=== PATIENT | female | born 1945 | race Caucasian/White ===

== ENCOUNTER 2017-01-17 15:26 | Emergency (ER) | payer MEDICARE, OTHER ==
[~2017-01-17] VITALS: Ht 170.2 cm; Wt 64.5 kg
[~2017-01-17 15:26] MED LIST: CLARITIN 1010 MG/TAB PO; FLEXERIL 1010 MG/TAB PO; LEVOXYL0.075 MG PO; MACROBID 1100 MG/CAP PO; NEXIUM 20MG20 MG PO; PREVACID 30MG30 M1 PO; PYRIDIUM200 M1 PO; TYLENOL 325MG325 MG PO
[2017-01-17 15:31] VITALS: PULSE 73; TEMP 97.8
[2017-01-17 15:47] LABS: BASO # 0.2 (0.0-0.2); BASO % 2.1 % (0.0-2.0); EOS # 0.2 (0.0-0.7); EOS % 2.2 % (0-4.0); GRAN # 4.2 (1.4-6.5); HEMATOCRIT 40.4 % (37.0-47.0); HEMOGLOBIN 13.1 g/dl (12.5-16.0); LYMPH # 2.7 (1.2-3.4); LYMPH % 33.3 % (20.0-51.0); MEAN CELL VOLUME 90 fl (80.0-100.0); MEAN CORPUSCULAR HEMOGLOBIN 29 pg (27.0-31.0); MEAN CORPUSCULAR HGB CONC 32 g/dl (33.0-37.0); MONO # 0.8 (0.1-0.6); MONO % 10.2 % (1.7-9.3); PLATELET COUNT 236 K/mm3 (130-400); RED BLOOD COUNT 4.47 M/mm3 (4.10-5.30); REDCELL DISTRIBUTION WIDTH-CV 13.9 % (11.5-14.5)
[2017-01-17 15:55] LABS: INR 1.1 (0.8-3.0); PROTHROMBIN TIME 12.6 SECONDS (9.7-12.8)
[2017-01-17 16:06] LABS: ALBUMIN 4.4 gm/dL (3.5-5.0); BILIRUBIN,TOTAL 0.8 mg/dL (0.0-1.0); CALCIUM 9.3 mg/dL (8.4-10.2); CREATININE, serum 0.72 mg/dL (0.52-1.25); POTASSIUM 3.7 mmol/L (3.4-5.0); TOTAL PROTEIN 7.7 gm/dL (6.4-8.2)
[2017-01-17] MEDS ORDERED: SYNTHROID0.088 MG/T PO (16:34)
[2017-01-17 18:12] VITALS: BP 133/87
== END 2017-01-17 18:13 | disposition home or self-care (01) ==
LOC: COL.ER 15:26
PROVIDERS: Emergency Medicine
DX: G43.809 Other migraine, not intractable, without status migrainosus (principal); K21.9 Gastro-esophageal reflux disease without esophagitis; Z87.891 Personal history of nicotine dependence; Z79.82 Long term (current) use of aspirin; Z86.73 Personal history of transient ischemic attack (TIA), and cerebral infarction without residual deficits
CPT/HCPCS: J1885; J2550; J7040

== ENCOUNTER → 2018-03-27 | Outpatient (CLI) | payer MEDICARE, OTHER ==
[~2018-03-27] VITALS: Ht 170.2 cm; Wt 57.4 kg
[~2018-03-27] MED LIST changes: +ASPIRIN 81M81 MG/TA2 PO; +CALCIUM 600/VIT1 CAP PO; +INDOCIN 25MG CA25 MG PO; +MULTI VITAMINS1 TAB PO; +PROTONIX 40MG T40 MG PO; +ROBAXIN 50500 MG/TAB PO; +SYNTHROID0.088 MG/T PO
[2018-03-27 13:43] VITALS: BP 122/83; PULSE 73
[2018-03-27 14:40] VITALS: BP 128/90; PULSE 71
== END ==
LOC: COL.RAD 13:15
DX: M51.26 Other intervertebral disc displacement, lumbar region (principal)
CPT/HCPCS: J3301

== ENCOUNTER 2018-05-28 09:43 | Emergency (ER) | payer MEDICARE, OTHER ==
[~2018-05-28] VITALS: Ht 167.6 cm; Wt 58.2 kg
[2018-05-28 09:50] VITALS: TEMP 97.1
[2018-05-28 10:06] LABS: BASO # 0.2 (0.0-0.2); BASO % 1.9 % (0.0-2.0); EOS # 0.2 (0.0-0.7); EOS % 1.9 % (0-4.0); GRAN # 4.8 (1.4-6.5); GRAN % 62.4 % (42.2-75.2); HEMOGLOBIN 13.2 g/dl (12.5-16.0); LYMPH # 1.7 (1.2-3.4); LYMPH % 22.1 % (20.0-51.0); MEAN CELL VOLUME 92 fl (80.0-100.0); MEAN CORPUSCULAR HEMOGLOBIN 31 pg (27.0-31.0); MEAN CORPUSCULAR HGB CONC 33 g/dl (33.0-37.0); MEAN PLATELET VOLUME 11.1 fl (7.4-10.4); MONO # 0.9 (0.1-0.6); MONO % 11.2 % (1.7-9.3); PLATELET COUNT 244 K/mm3 (130-400); RED BLOOD COUNT 4.33 M/mm3 (4.10-5.30); REDCELL DISTRIBUTION WIDTH-CV 14.5 % (11.5-14.5)
[2018-05-28 10:21] LABS: INR 1.1 (0.8-3.0); PROTHROMBIN TIME 12.7 SECONDS (9.7-12.8)
[2018-05-28 10:24] LABS: ALANINE AMINOTRANSFERASE 21 U/L (9-52); ALBUMIN 3.9 gm/dL (3.5-5.0); ALKALINE PHOSPHATASE 69 U/L (50-136); ANION GAP 6 mmol/L (7-16); AST,SGOT 51 U/L (15-37); BILIRUBIN,TOTAL 0.9 mg/dL (0.0-1.0); BLOOD UREA NITROGEN 12 mg/dL (7-17); CALCIUM 9.3 mg/dL (8.4-10.2); CARBON DIOXIDE 30 mmol/L (22-30); CHLORIDE 100 mmol/L (98-107); CREATININE, serum 0.64 mg/dL (0.52-1.25); GLUCOSE 87 mg/dL (74-106); POTASSIUM 3.8 mmol/L (3.4-5.0); SODIUM 136 mmol/L (137-145)
[2018-05-28 10:47] LABS: TROPONIN-I < 0.012 ng/mL (0.000-0.034)
[2018-05-28 11:48] VITALS: BP 123/87; PULSE 66
== END 2018-05-28 11:49 | disposition home or self-care (01) ==
LOC: COL.ER 09:43
PROVIDERS: Emergency Medicine
DX: R51 Headache (principal); K21.9 Gastro-esophageal reflux disease without esophagitis; E03.9 Hypothyroidism, unspecified; Z79.82 Long term (current) use of aspirin
CPT/HCPCS: J1200; J2765; J7030

== ENCOUNTER → 2018-08-09 | Outpatient (CLI) | payer MEDICARE, OTHER ==
[~2018-08-09] VITALS: Ht 167.6 cm; Wt 60.0 kg
[~2018-08-09] MED LIST changes: +ALEVE 220MG220 MG PO; +LEVOXYL0.088 MG PO; +MOTRIN 200200 MG/TAB PO; +TYLENOL 500MG500 MG PO
[2018-08-09 12:40] VITALS: BP 118/83; PULSE 72
[2018-08-09 13:21] VITALS: BP 130/86; PULSE 69
== END ==
LOC: COL.RAD 11:45
DX: M51.26 Other intervertebral disc displacement, lumbar region (principal)
CPT/HCPCS: J3301

== ENCOUNTER → 2019-01-30 | Outpatient (CLI) | payer MEDICARE, OTHER ==
[~2019-01-30] VITALS: Ht 167.6 cm; Wt 57.6 kg
[~2019-01-30] MED LIST changes: +SYNTHROID0.1 MG/TAB PO
[2019-01-30 13:15] VITALS: BP 115/73; PULSE 69
[2019-01-30 14:44] VITALS: BP 138/87; PULSE 64
--- NOTE | 2019-01-30 15:22 | NUR ---
pt was taken down to pov and friend drove her home.
== END ==
LOC: COL.RAD 13:00
DX: M48.061 Spinal stenosis, lumbar region without neurogenic claudication (principal)
CPT/HCPCS: J3301

== ENCOUNTER → 2020-12-07 | Outpatient (CLI) | payer MEDICARE, OTHER | LOC: MC.RAD 13:30 | DX: Z12.31 Encounter for screening mammogram for malignant neoplasm of breast (principal) ==

== ENCOUNTER 2021-09-20 07:45 | Observation (INO) | payer MEDICARE, OTHER ==
[~2021-09-20] VITALS: Ht 170.2 cm; Wt 60.2 kg
[2021-09-20 08:10] LABS: BASO # 0.1 K/mm3 (0.0-0.2); BASO % 1.8 % (0.0-2.0); EOS # 0.2 K/mm3 (0.0-0.7); EOS % 3.2 % (0.0-4.0); GRAN # 3.7 K/mm3 (1.4-6.5); HEMATOCRIT 38.4 % (37.0-47.0); HEMOGLOBIN 12.6 g/dl (12.5-16.0); LYMPH % 28.8 % (20.0-51.0); MEAN CELL VOLUME 89 fl (80.0-100.0); MEAN CORPUSCULAR HEMOGLOBIN 29 pg (27-31); MEAN CORPUSCULAR HGB CONC 33 g/dl (33.0-37.0); MEAN PLATELET VOLUME 11.1 fl (7.4-10.4); MONO # 0.8 K/mm3 (0.1-0.6); MONO % 11.9 % (1.7-9.3); PLATELET COUNT 246 K/mm3 (130-400); RED BLOOD COUNT 4.34 M/mm3 (4.10-5.30); REDCELL DISTRIBUTION WIDTH-CV 13.7 % (11.5-14.5)
[2021-09-20 08:22] LABS: INR 1.2 (0.8-3.0)
[2021-09-20 08:30] LABS: ALBUMIN 3.8 gm/dL (3.4-4.8); BILIRUBIN,TOTAL 0.5 mg/dL (0.2-1.2); CALCIUM 9.5 mg/dL (8.4-10.2); CREATININE, serum 0.76 mg/dL (0.57-1.11); POTASSIUM 4.1 mmol/L (3.5-4.5); TOTAL PROTEIN 7.3 gm/dL (6.2-8.1)
[2021-09-20] MEDS ORDERED: MUCUS RELIEF200 MG PO (11:30)
[2021-09-20 16:27] VITALS: BP 98/65; PULSE 72; TEMP 98.3
--- NOTE | 2021-09-20 19:18 | NUR ---
Pt arrived to the floor without any deficits. NIH on arrival was 0. Bedside dysphagia was completed without any issues. Diet ordered as general diet. The patient denies any pain, but does complain of generalized weakness. Report given to SHAYNE Ness.
[2021-09-20 20:55] VITALS: BP 93/62; PULSE 67; TEMP 98.4
[2021-09-21 00:16] VITALS: BP 111/64; PULSE 65; TEMP 97.9
[2021-09-21 04:36] VITALS: BP 105/71; PULSE 63; TEMP 98.2
--- NOTE | 2021-09-21 05:06 | NUR ---
NO NEW ISSUES NOTED OR REPORTED BY PATIENT THROUGHOUT THE NIGHT.
[2021-09-21 06:17] LABS: HEMATOCRIT 38.5 % (37.0-47.0); HEMOGLOBIN 12.3 g/dl (12.5-16.0); MEAN CELL VOLUME 90 fl (80.0-100.0); MEAN CORPUSCULAR HEMOGLOBIN 29 pg (27-31); MEAN CORPUSCULAR HGB CONC 32 g/dl (33.0-37.0); MEAN PLATELET VOLUME 11.1 fl (7.4-10.4); PLATELET COUNT 241 K/mm3 (130-400)
[2021-09-21 06:42] LABS: CALCIUM 8.5 mg/dL (8.4-10.2); CHOLESTEROL RISK RATIO 3.6; CREATININE, serum 0.78 mg/dL (0.57-1.11); POTASSIUM 4.2 mmol/L (3.5-4.5)
--- NOTE | 2021-09-21 07:23 | NUR ---
PT LAYING IN BED, DENIES ANY PAIN, STATES SHE FEELS GOOD, BUT IS STILL WEAK. NO OTHER CONCERNS RIGHT AT THIS TIME.
[2021-09-21 08:41] VITALS: BP 95/56; PULSE 50; TEMP 98.1
[2021-09-21 12:22] VITALS: BP 97/62; PULSE 65; TEMP 98.3
[2021-09-21] MEDS ORDERED: ASPIRIN E.C. 8181 MG PO (14:39)
[2021-09-21] MEDS ORDERED: LIPITOR20 MG PO (14:39)
[2021-09-21] MEDS ORDERED: PLAVIX 75MG TAB75 MG PO (14:39)
[2021-09-21] MEDS ORDERED: LEVAQUIN 750MG750 M1 PO (14:39)
[2021-09-21] MEDS ORDERED: PREDNISONE10 MG PO (14:42)
--- NOTE | 2021-09-21 15:26 | NUR ---
Mason Foreman/Superintendant met with patient and her , Lorenzo (ph#[phone]) to discuss discharge planning. Patient lives in [place] with Lorenzo and sees Dr. Burnham for primary care. Patient obtains medications from [facility] with no difficulties and does not use any DME. Patient reports independence with ADLS and plans to return home upon discharge. Patient states she thinks she may have DPOA-HC that designates her son, Graham. Patient's legal next of kin is her , Lorenzo and she has three children: Martin, Graham, and Kimberlyn. Discharge Plan: Home with
[2021-09-21 15:33] LABS: ALBUMIN 3.6 gm/dL (3.4-4.8); BILIRUBIN,TOTAL 0.5 mg/dL (0.2-1.2); CALCIUM 9.1 mg/dL (8.4-10.2); CREATININE, serum 0.88 mg/dL (0.57-1.11); POTASSIUM 4.4 mmol/L (3.5-4.5); TOTAL PROTEIN 6.9 gm/dL (6.2-8.1)
[2021-09-21 16:11] LABS: C-REACTIVE PROTEIN 0.15 mg/dL (0.00-0.50)
[2021-09-22 00:25] LABS: PROCALCITONIN <0.05 ng/mL (0.00-0.09)
[2021-09-23 12:36] LABS: ANGIOTENSIN CONVERTING ENZYME 44 U/L (16 - 85)
== END 2021-09-21 16:45 | disposition home or self-care (01) ==
LOC: COL.ER 07:45 → MEDICAL 10:08 → COL.ER 10:08 → MEDICAL 11:39
PROVIDERS: Emergency Medicine; ADMIT Internal Medicine
DX: G45.9 Transient cerebral ischemic attack, unspecified (principal); R91.1 Solitary pulmonary nodule; E78.5 Hyperlipidemia, unspecified; D86.9 Sarcoidosis, unspecified; E03.9 Hypothyroidism, unspecified; R59.0 Localized enlarged lymph nodes; I07.1 Rheumatic tricuspid insufficiency; Z79.890 Hormone replacement therapy; Z79.899 Other long term (current) drug therapy; Z79.1 Long term (current) use of non-steroidal anti-inflammatories (NSAID); Z20.822 Contact with and (suspected) exposure to COVID-19
CPT/HCPCS: OP; 99223-AI; G0378; J1650; J2060; J2405; J7512; Q9967